=== PATIENT | female | born 1975 | race Caucasian/White ===

== ENCOUNTER 2020-04-17 07:17 | Outpatient (CLI) | payer OTHER, SELFPAY ==
[2020-04-19 21:53] LABS: FSH 4.1 mIU/mL (***); LH 3.4 mIU/mL (***)
[2020-04-21 23:01] LABS: Estradiol, Ultrasensitive 112 pg/mL
== END 2020-04-17 07:18 | disposition home or self-care (01) ==
LOC: CHSLAB 07:19
PROVIDERS: PCP Family Medicine; Visit Provider Obstetrics & Gynecology
DX: N95.1 Menopausal and female climacteric states (principal)
CPT/HCPCS: 36415; 82670; 83001; 83002

== ENCOUNTER 2021-01-05 07:33 | Outpatient (CLI) | payer OTHER, SELFPAY | END 2021-01-05 07:34 | disposition home or self-care (01) | LOC: CHSCOVIDVC 07:34 | PROVIDERS: PCP Family Medicine | DX: Z23 Encounter for immunization (principal) | CPT/HCPCS: 0011A; 91301 ==

== ENCOUNTER 2021-02-02 07:48 | Outpatient (CLI) | payer OTHER, SELFPAY | END 2021-02-02 07:49 | disposition home or self-care (01) | LOC: CHSCOVIDVC 07:49 | PROVIDERS: PCP Family Medicine | DX: Z23 Encounter for immunization (principal) | CPT/HCPCS: 0012A; 91301 ==

== ENCOUNTER 2021-10-14 06:40 | Outpatient (CLI) | payer OTHER, SELFPAY ==
[2021-10-14 07:43] LABS: Hematocrit 42.8 % (35.0-49.0); Hemoglobin 13.7 g/dL (12.0-15.0); Mean Corpuscular Hemoglobin 29.3 pg (27.0-31.0); Mean Corpuscular Volume 91.6 fL (78.0-102.0); Mean Platelet Volume 12.6 fl (9.2-11.8); Platelet Count Result 267 K/mm3 (150-420); Red Blood Count 4.67 M/mm3 (4.20-5.40); Red Cell Distribution Width 12.9 % (11.6-14.4); White Blood Count 6.4 K/mm3 (4.8-10.8)
[2021-10-14 08:41] LABS: Albumin Level 4.3 g/dL (3.4-5.0); Alkaline Phosphatase 88 U/L (46-116); Anion Gap 11 mmol/L (8-16); Aspartate Amino Transferase 18 U/L (15-37); Bilirubin,Total 0.3 mg/dL (0.00-1.00); Blood Urea Nitrogen 16 mg/dL (7-18); Calcium 9.4 mg/dL (8.5-10.1); Carbon Dioxide 27 mmol/L (21-32); Chloride 95 mmol/L (98-108); Cholesterol 308 mg/dL (0-200); Estimated Glomerular Filt Rate 59; Folic Acid 18.6 ng/mL (8.6->20); Free T4 Free Thyroxine 1.01 ng/dL (0.76-1.46); Glucose 104 mg/dL (70-99); HDL Direct 38 mg/dL (40-60); LDL Cholesterol Calculated 200 mg/dL (<130); Osmolality Calculated 277 mOsm/kg (285-295); Potassium 4.5 mmol/L (3.5-5.1); Sodium 133 mmol/L (136-145); Total Protein 8.1 g/dL (6.4-8.2); Triglycerides 350 mg/dL (0-150); Vitamin B12 478 pg/mL (193-986)
[2021-10-14 08:50] LABS: Alanine Aminotransferase 27 U/L (14-59)
[2021-10-14 09:43] LABS: Thyroid Stimulating Hormone Reflex 2.29 u/IU/mL (0.36-3.74)
[2021-10-16 07:19] LABS: FSH 41.9 mIU/mL (***)
[2021-10-16 14:23] LABS: Vitamin D 25 Hydroxy 23 ng/mL (30-100)
== END 2021-10-14 06:41 | disposition home or self-care (01) ==
LOC: CHSLAB 06:45
PROVIDERS: PCP Family Medicine; Visit Provider Family Medicine
DX: R53.83 Other fatigue (principal); E11.9 Type 2 diabetes mellitus without complications; E53.8 Deficiency of other specified B group vitamins
CPT/HCPCS: 36415; 80053; 80061; 82306; 82607; 82746; 83001; 84439; 84443; 85027

== ENCOUNTER 2022-01-21 09:03 | Outpatient (CLI) | payer OTHER, SELFPAY ==
--- NOTE | ~2022-01-21 | MM_ITS ---
EXAMINATION: MM screening [facility] BI w luisa HISTORY: Screening mammogram TECHNIQUE: Craniocaudal and mediolateral oblique 3-D tomosynthesis images were obtained and synthetic 2-D images were generated. CAD analysis was submitted and interpreted. COMPARISON: 08/16/2019 BREAST PARENCHYMAL COMPOSITION: The breasts are heterogeneously dense, which may obscure small masses . FINDINGS: There is no suspicious mass, calcification, or architectural distortion to suggest malignan cy in either breast. There has been no suspicious interval change. IMPRESSION: 1. No mammographic evidence of malignancy. 2. Recommend routine screening mammography in one year. BI-RADS Category 1: Negative Reviewed, dictated and finalized at location A.
== END 2022-01-21 09:04 | disposition home or self-care (01) ==
LOC: CHSIMG 09:05
PROVIDERS: PCP Family Medicine; Visit Provider Obstetrics & Gynecology
DX: Z12.31 Encounter for screening mammogram for malignant neoplasm of breast (principal)
CPT/HCPCS: 77063; 77067

== ENCOUNTER 2024-01-01 08:28 | Outpatient (CLI) | payer OTHER, SELFPAY ==
[2024-01-01 10:04] LABS: Thyroid Stimulating Hormone Reflex 1.93 u/IU/mL (0.36-3.74)
[2024-01-03 06:44] LABS: FSH 70.1 mIU/mL
[2024-01-08 19:09] LABS: Estradiol, Ultrasensitive 4 pg/mL
== END 2024-01-01 08:29 | disposition home or self-care (01) ==
PROVIDERS: PCP Family Medicine; Visit Provider Obstetrics & Gynecology
DX: N95.1 Menopausal and female climacteric states (principal)
CPT/HCPCS: 36415; 82670; 83001; 84443

== ENCOUNTER 2024-12-14 06:08 | Outpatient (CLI) | payer OTHER, SELFPAY ==
--- NOTE | ~2024-12-14 | MM_ITS ---
EXAMINATION: MM screening [facility] BI w luisa HISTORY: Screening TECHNIQUE: Craniocaudal and mediolateral oblique 3-D tomosynthesis images were obtained and synthetic 2-D images were generated. CAD analysis was submitted and interpreted. COMPARISON: Comparison to multiple prior studies sequentially, with oldest reviewed study dated 08/07. BREAST PARENCHYMAL COMPOSITION: Not dense: There are scattered areas of fibroglandular density. FINDINGS: There is no evidence of suspicious mass, calcification, or architectural distortion to sugg est malignancy in either breast. There has been no suspicious interval change. IMPRESSION: 1. No mammographic evidence of malignancy. 2. Recommend routine screening mammography in one year. BI-RADS Category 1: Negative Reviewed, dictated and finalized at location A.
== END 2024-12-14 06:09 | disposition home or self-care (01) ==
PROVIDERS: PCP Family Medicine; Visit Provider Family Medicine
DX: Z12.31 Encounter for screening mammogram for malignant neoplasm of breast (principal)
CPT/HCPCS: 77063; 77067